=== PATIENT | female | born 2005 | race Caucasian/White ===

== ENCOUNTER 2023-03-23 08:32 | Emergency (ER) | payer OTHER ==
[~2023-03-23] VITALS: Ht 170.2 cm; Wt 69.9 kg
[2023-03-23 10:23] LABS: INFLUENZA B NAA NEGATIVE (NEGATIVE); RESPIRATORY SYNCYTIAL VIR NAA NEGATIVE (NEGATIVE)
[2023-03-23] MEDS ORDERED: PENICILLIN V P500 MG PO (10:32)
[2023-03-23 10:43] VITALS: BP 114/54
== END 2023-03-23 10:42 | disposition home or self-care (01) ==
LOC: ED 08:32
PROVIDERS: Emergency Medicine
DX: J02.0 Streptococcal pharyngitis (principal)
CPT/HCPCS: 87502; 87651; 99283; U0002